=== PATIENT | female | born 1945 | race Caucasian/White ===

== ENCOUNTER 2021-10-21 07:54 | Day surgery (SDC) | payer MEDICARE, BC ==
[2021-10-19 10:54] LABS: COVID AG,FIA SOURCE NASOPHARYNGEAL
[~2021-10-21] VITALS: Ht 154.9 cm; Wt 53.6 kg
[~2021-10-21 07:54] MED LIST: ALLO-97 PO; ASPI-1450 PO; CHOL25TA4 PO; EZET10TA57 PO; FOLI-130 PO; FURO40 PO; KETOROLAC TROMETHAMINE 0.5% 5 ML OPHTHALMIC SOLUTION ONE; LEVO75 PO; METHYLFOLATE PO; MOXIFLOXACIN HCL 0.5% 3 ML OPHTHALMIC SOLUTION ONE; OLME5TAB6 PO; PANT-31 PO; PHENYLEPHRINE HCL 2.5% 2 ML OPHTHALMIC SOLUTION ONE; PROP10TA73 PO; RINGERS SOLUTION,LACTATED 500 ML IV ONE; TROPICAMIDE 1% 2 ML OPHTHALMIC SOLUTION ONE; VITA0.4T20 PO
[2021-10-21] MEDS ORDERED: CHONDR SULF A SOD/HYALURONATE 1.05 ML KIT IO ONE (07:55)
[2021-10-21] MEDS ORDERED: TETRACAINE HCL/PF 0.5% 4 ML OPHTHALMIC SOLUTION OS ONE (07:55)
[2021-10-21] MEDS ORDERED: POVIDONE-IODINE 10% 15 ML SOLUTION UD TP ONE (07:55)
[2021-10-21] MEDS ORDERED: BALANCED SALT 15 ML OPHTHALMIC IRRIG.SOLN OS ONE (07:55)
[2021-10-21] MEDS ORDERED: LIDOCAINE/PF 1% 2 ML VIAL IM ONE (07:55)
[2021-10-21] MEDS ORDERED: EPINEPHrine 1:1,000 [1 MG/ML] VIAL IM ONE (07:55)
[2021-10-21] MEDS: PHENYLEPHRINE HCL 2.5% 2 ML OPHTHALMIC SOLUTION OS SCH ×3 (08:22→08:33)
[2021-10-21] MEDS: TROPICAMIDE 1% 2 ML OPHTHALMIC SOLUTION OS SCH ×3 (08:22→08:33)
[2021-10-21] MEDS: MOXIFLOXACIN HCL 0.5% 3 ML OPHTHALMIC SOLUTION OS SCH ×3 (08:22→08:33)
[2021-10-21] MEDS: KETOROLAC TROMETHAMINE 0.5% 5 ML OPHTHALMIC SOLUTION OS SCH ×3 (08:22→08:33)
[2021-10-21] MEDS ORDERED: MIDAZOLAM HCL 2 MG/2 ML VIAL IVP ONE (12:00)
[2021-10-21] MEDS ORDERED: FentaNYL CITRATE PF 100 MCG/2 ML VIAL IVP ONE (12:00)
== END 2021-10-21 11:30 | disposition home or self-care (01) ==
LOC: SURGERY 07:54
PROVIDERS: ATTEND Ophthalmology
DX: H25.11 Age-related nuclear cataract, right eye (principal); H35.443 Age-related reticular degeneration of retina, bilateral; E78.00 Pure hypercholesterolemia, unspecified; I10 Essential (primary) hypertension; Z79.899 Other long term (current) drug therapy; Z88.0 Allergy status to penicillin; Z88.8 Allergy status to other drugs, medicaments and biological substances; E78.5 Hyperlipidemia, unspecified; Z90.710 Acquired absence of both cervix and uterus; Z98.890 Other specified postprocedural states; Z85.43 Personal history of malignant neoplasm of ovary
CPT/HCPCS: 93005; 87426; 66984; C9803; J0171; J3010; J3490; J2250; Q9967; J7120; V2632